=== PATIENT | male | born 1945 | race Caucasian/White ===

== ENCOUNTER 2017-07-27 07:08 | Day surgery (SDC) | payer BC ==
[2017-07-26 09:51] VITALS: BMI 28.1
[2017-07-27] MEDS ORDERED: PROPOFOL 20 ML ONE ×2 (07:48)
[2017-07-27] MEDS ORDERED: LIDOCAINE HCL/PF 2% SDV 5ML VIAL ONE (07:48)
[2017-07-27 08:33] VITALS: TEMP 97.8
[2017-07-27 10:35] VITALS: BP 114/75; PULSE 68
--- NOTE | 2017-07-30 10:35 | PATH ---
Surgical Pathology Report Patient Name: CECILIA SORENSEN [facility]. Rec. #: [id number] /Age/Gender: 1945 (Age: 71) / M Account: [id number] Location: U-ENDOSCOPY Taken: 07/27/2017 Received: 07/27/2017 Reported: 07/30/2017 Physicians: Luz Marina Ruth M.D. Specimen(s) Received A: BX POLYP RIGHT COLON B: BX POLYP PROXIMAL TRANSVERSE COLON Clinical History Adenoma surveillance Postoperative diagnosis: Colon polyps, diverticulosis Final Diagnosis A. COLON, RIGHT, POLYP, BIOPSY: TUBULAR ADENOMA. B. PROXIMAL TRANSVERSE COLON, POLYP, BIOPSY: TUBULAR ADENOMA. Electronically Signed Tameka Fonseca M.D. Gross Description A. Received in formalin, labeled "biopsy polyp right colon" is a king, irregular portion of soft tissue measuring 0.4 cm. in greatest dimension. The specimen is submitted in toto in one cassette. B. Received in formalin, labeled "biopsy polyp proximal transverse colon" are 3 king, irregular portions of soft tissue ranging from 0.1-0.3 cm. in greatest dimension. The specimens are submitted in toto in one cassette. /07/27/2017 saudi07/27/2017
== END 2017-07-27 10:20 | disposition home or self-care (01) ==
LOC: JASU-ENDO 07:08
PROVIDERS: ATTEND Internal Medicine Gastroenterology
PROC: 0DBL8ZX Excision of Transverse Colon, Via Natural or Artificial Opening Endoscopic, Diagnostic (ICD-10-PCS; 2017-07-27)
PROC: 0DBK8ZX Excision of Ascending Colon, Via Natural or Artificial Opening Endoscopic, Diagnostic (ICD-10-PCS; principal; 2017-07-27 08:00)
DX: Z86.010 Personal history of colon polyps (principal); K57.30 Diverticulosis of large intestine without perforation or abscess without bleeding; D12.2 Benign neoplasm of ascending colon; D12.3 Benign neoplasm of transverse colon; I48.2 Chronic atrial fibrillation; Z85.71 Personal history of Hodgkin lymphoma; Z85.820 Personal history of malignant melanoma of skin; C78.00 Secondary malignant neoplasm of unspecified lung
CPT/HCPCS: 88305-TC

== ENCOUNTER 2020-09-24 04:50 | Day surgery (SDC) | payer BC, OTHER ==
[2020-09-22 17:06] VITALS: BMI 28.8
[2020-09-24 12:48] VITALS: TEMP 98
[2020-09-24 13:02] VITALS: PULSE 60
[2020-09-24 13:23] VITALS: BP 125/77
== END 2020-09-24 13:36 | disposition home or self-care (01) ==
LOC: JASU-ENDO 04:50
PROVIDERS: ATTEND Internal Medicine Gastroenterology
PROC: 0DBL8ZX Excision of Transverse Colon, Via Natural or Artificial Opening Endoscopic, Diagnostic (ICD-10-PCS; principal; 2020-09-24 12:00)
DX: Z12.11 Encounter for screening for malignant neoplasm of colon (principal); D12.3 Benign neoplasm of transverse colon; K57.30 Diverticulosis of large intestine without perforation or abscess without bleeding; K64.8 Other hemorrhoids; Z86.010 Personal history of colon polyps
CPT/HCPCS: 88305-TC

== ENCOUNTER 2023-01-12 10:21 | Emergency (ER) | payer OTHER, BC ==
[2023-01-12 10:26] VITALS: BP 153/95; PULSE 74; RESP 18; TEMP 97.7; BMI 27.5
== END 2023-01-12 10:52 | disposition home or self-care (01) ==
LOC: FER 10:21
DX: R04.0 Epistaxis (principal)
CPT/HCPCS: 99282-25

== ENCOUNTER 2023-02-11 17:18 | Emergency (ER) | payer OTHER, BC ==
[2023-02-11 17:26] VITALS: BP 154/89; PULSE 75; RESP 18; BMI 27.5
[2023-02-11] MEDS ORDERED: SILVER NITRATE 75% APPLIC STCK 1 PKT EACH ONE (17:53)
[2023-02-11] MEDS ORDERED: OXYMETAZOLINE 0.05% NASAL SOLUTION 15 ML BOTTLE NS ONE ×2 (17:55→17:56)
== END 2023-02-11 19:59 | disposition home or self-care (01) ==
LOC: FER 17:18
PROC: 093K8ZZ Control Bleeding in Nasal Mucosa and Soft Tissue, Via Natural or Artificial Opening Endoscopic (ICD-10-PCS; principal; 2023-02-11)
DX: R04.0 Epistaxis (principal)
CPT/HCPCS: 99283-25

== ENCOUNTER 2024-01-28 16:01 | Emergency (ER) | payer OTHER, BC ==
[2024-01-28 16:17] VITALS: RESP 17; TEMP 98; BMI 26.0
[2024-01-28 17:01] LABS: BASO % 1.1 % (0-2.0); EOS % 6.9 % (0-4.5); HEMATOCRIT 38.9 % (35.4-49); HEMOGLOBIN 12.8 GM/dL (11.7-16.9); LYMPH % 11.9 % (8-40); MCHC 32.9 g/dl (32.0-35.9); MEAN CELL VOLUME 100.3 fl (80-96); MEAN PLT VOLUME 9.7 fl (7.5-11.1); MONO % 11.3 % (3.8-10.2); NEUT % 68.8 % (42.8-82.8); PLATELET COUNT 228 10^3/uL (134-434); RBC 3.88 M/mm3 (4.00-5.60); RDW 14.7 % (11.9-15.9); WHITE BLOOD COUNT 7.3 K/mm3 (4.0-10.0)
[2024-01-28 17:04] VITALS: BP 144/72; PULSE 57
[2024-01-28 17:33] LABS: POTASSIUM 4.4 mmol/L (3.5-5.1)
[2024-01-28 17:35] LABS: CALCIUM 8.8 mg/dL (8.5-10.1)
[2024-01-28 17:39] LABS: CREATININE 1.1 mg/dL (0.55-1.3)
[2024-01-28 17:40] LABS: BILIRUBIN,TOTAL 1.1 mg/dL (0.2-1); TOT PROT 7.1 g/dl (6.4-8.2)
[2024-01-28 17:47] LABS: URINE APPEARANCE CLEAR; URINE BILIRUBIN NEGATIVE (NEGATIVE); URINE COLOR YELLOW; URINE GLUCOSE (UA) NEGATIVE (NEGATIVE); URINE KETONE NEGATIVE (NEGATIVE); URINE LEUK ESTERASE NEGATIVE (NEGATIVE); URINE NITRITE NEGATIVE (NEGATIVE); URINE PROTEIN NEGATIVE (NEGATIVE)
== END 2024-01-28 20:07 | disposition home or self-care (01) ==
LOC: JER 16:01
DX: R55 Syncope and collapse (principal); R42 Dizziness and giddiness; Z20.822 Contact with and (suspected) exposure to COVID-19
CPT/HCPCS: 0241U-QW; 36415; 80053; 81003; 84484; 85025; 93005; 93010; 99284-25

== ENCOUNTER 2024-10-16 11:12 | Day surgery (SDC) | payer OTHER, BC ==
[2024-10-16] MEDS: IRON SUCROSE INJECTION 200 MG in SODIUM CHLORIDE 100 ML IVPB ONE (11:50)
[2024-10-16 16:14] VITALS: RESP 20; TEMP 97.6
[2024-10-16 16:16] VITALS: BP 113/54; PULSE 68
== END 2024-10-16 12:50 | disposition home or self-care (01) ==
LOC: JONCNONCHE 11:12 → J7W 11:15 → JONCNONCHE 12:50
PROVIDERS: ATTEND Internal Medicine Hematology & Oncology
PROC: 3E033GC Introduction of Other Therapeutic Substance into Peripheral Vein, Percutaneous Approach (ICD-10-PCS; principal; 2024-10-16)
DX: D50.9 Iron deficiency anemia, unspecified (principal)
CPT/HCPCS: J1756

== ENCOUNTER 2024-11-07 10:45 | Day surgery (SDC) | payer OTHER, BC ==
[2024-11-07] MEDS: IRON SUCROSE INJECTION 200 MG in SODIUM CHLORIDE 100 ML IVPB ONE (10:58)
[2024-11-07 16:29] VITALS: RESP 20; TEMP 97.5
[2024-11-07 16:31] VITALS: BP 136/64; PULSE 74
== END 2024-11-07 11:50 | disposition home or self-care (01) ==
LOC: JONCCHEMO 10:45 → J7W 11:46 → JONCCHEMO 11:50
PROVIDERS: ATTEND Internal Medicine Hematology & Oncology
PROC: 3E033GC Introduction of Other Therapeutic Substance into Peripheral Vein, Percutaneous Approach (ICD-10-PCS; principal; 2024-11-07)
DX: D50.9 Iron deficiency anemia, unspecified (principal)
CPT/HCPCS: 96365; J1756

== ENCOUNTER 2025-01-15 06:31 | Day surgery (SDC) | payer OTHER, BC ==
[2025-01-09 15:26] VITALS: BMI 25.8
[2025-01-15] MEDS ORDERED: ACETAMINOPHEN 500 MG TABLET (FP) PO PRN (09:17)
[2025-01-15] MEDS: LIDOCAINE HCL 1% PRESERVATIVE FREE - 30ML VIAL IJ ONE (11:55)
[2025-01-15] MEDS: IOHEXOL 180 MG/1 ML ML IJ ONE (11:56)
[2025-01-15] MEDS: TRIAMCINOLONE ACETONIDE 40 MG/ML 10 ML VIAL IJ ONE (11:57)
[2025-01-15 12:41] VITALS: BP 114/66; PULSE 69; RESP 20; TEMP 98
== END 2025-01-15 12:30 | disposition home or self-care (01) ==
LOC: JASU-SURG 06:31
PROVIDERS: ATTEND Pain Medicine Pain Medicine
PROC: 3E0U3BZ Introduction of Anesthetic Agent into Joints, Percutaneous Approach (ICD-10-PCS; 2025-01-15)
PROC: 3E0U33Z Introduction of Anti-inflammatory into Joints, Percutaneous Approach (ICD-10-PCS; principal; 2025-01-15 12:00)
DX: M53.3 Sacrococcygeal disorders, not elsewhere classified (principal)
CPT/HCPCS: 76000-TC-FY